=== PATIENT | female | born 1980 | race Caucasian/White ===

== ENCOUNTER 2025-05-22 06:06 | Day surgery (SDC) | payer OTHER, SELFPAY ==
[2025-05-16 11:12] VITALS: BMI 29.3
[2025-05-22] VITALS (10 sets, daily range): BP systolic 120–142; BP diastolic 68–94; PULSE 75–96; RESP 14–18; TEMP 36.9–37.1; O2SAT 95–100
--- OUTSIDE RECORDS SUMMARY | 2025-05-22 06:14 | XMS_ITS | Clinical Summary ---
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 Role Phone Pcp, No Primary Care Provider Unavailabl e Allergies Active Allergy Reactions Criticality Noted Date Comments Amoxicillin 08/24/2020 Medications cetirizine 10 mg capsule Take 10 mg by mouth daily as needed Active mv,calcium,min/ iron/folic/vitK (MULTI FOR HER ORAL) Take by mouth Active cholecalciferol , vitamin D3, 10 mcg (400 unit) capsule Take by mouth daily Active NON FORMULARY Take 1 capsule by mouth daily Protandim Nrf2 Synergizer Active Active Problems No known active problems Encounters Date Type Department Care Team Description 04/18/2025 Telephone [facility] G[facility]enterology [address] [place] [address] Liz Brand NP 03/26/2025 7:30 AM CDT - 03/26/2025 8:27 AM CDT Surgery [address] [phone] Shahbaz Azevedo MD COLONOSCOPY with banding 03/26/2025 7:29 AM CDT Anesthesia Event [address] [phone] Ebony Patel MD 03/26/2025 6:57 AM CDT - 03/26/2025 9:19 AM CDT Hospital Encounter [address] [phone] [id number] Shahbaz Azevedo MD Hemorrhage of anus and rectum; Preop testing Discharge Disposition: Home self care 03/23/2025 Orders Only [facility]enter[facility] [address] [phone] Liz Brand NP Hemorrhage of anus and rectum (Primary Dx) 03/23/2025 Telephone [facility] [address] [place] [address] Shahbaz Azevedo MD Documentation from Last 3 Months Immunizations Immunization Administration Dates Next Due DTaP 04/10/2019 Influenza TIV (IM) 08/25/2021,08/17/2020 Pfizer Covid-19, Mrna, Lnp-s , Pf, 30mcg/0.3ml Dose 07/11/2021,10/22/2020,09/26/2020 Family History Medical History Relation Name Comments Hypertension Brother 1 Colon polyps Father Heart disease Father Hyperlipidemia Father Hypertension Father Cancer Maternal Grandfather lung Cancer Maternal Grandmother lung Colon polyps Mother Hypertension Paternal Grandmother Stroke Paternal Grandmother Relation Name Status Comments Brother 1 Alive Brother 2 Alive Father Alive Maternal Grandfather Maternal Grandmother Mother Alive Paternal Grandfather Paternal Grandmother Sister 1 Alive Sister 2 Alive Sister 3 Alive Social History Tobacco Use Types Packs/Day Years Used Date Smoking Tobacco: Never Smokeless Tobacco: Never Tobacco Cessation:Counseling Given: Not Answered Alcohol Use Standard Drinks/Week Comments Never 0 (1 standard drink = 0.6 oz pur e alcohol) AUDIT-C Answer Date Recorded Frequency of Alcohol Consumption Not on file 05/25/2022 Q2: How many drinks containi ng alcohol do you have on a typical day when you are drinking? Patient does not drink Frequency of Binge Drinking Not on file 05/11 PHQ-2 Answer Date Recorded PHQ-2 Score 0 05/25/2022 Comments No Sex and Gender Information Value Date Recorded Sex Assigned at Not on file Legal Sex Female 12:00 PM CDT Gender Identity Female 08/22/2021 9:17 AM [employer] Sexual Orientation Not on file Last Filed Vital Signs Vital Sign Reading Time Taken Comments Blood Pressure 140/83 03/26/2025 9:08 AM CDT Pulse 67 01/03/2025 11:03 AM CDT Temperature 36.7 C (98.1 F) 03/26/2025 8:33 AM CDT Respiratory Rate 18 03/26/2025 9:08 AM CDT Oxygen Saturation 100% 03/26/2025 9:08 AM CDT Inhaled Oxygen Concentration - - Weight 83.7 kg (184 lb 9.6 oz) 03/26/2025 7:09 A M CDT Height 165.1 cm (5' 5) 03/26/2025 7:09 AM CDT Body Mass Index 30.72 03/26/2025 7:09 AM CDT Plan of Treatment Health Maintenance Due Date Last Done Comments Depression Screening 1992 Hepatitis B Vaccines (1 of 3 - 19+ 3-dose series) 1999 Pap Smear 04/10/2020 04/10/2017 COVID-19 Vaccine ( season) 2024 07/11/2021, 10/22/2020, 09/26/2020 Influenza Vaccine (#1) 2025 , 07/12/2023, 08/25/2021, Additional history exists Mammogram 10/26/2025 10/26/2024, 12/10/2022, 05/27/2022, Additional history exists DTaP,Tdap,and Td Vaccines (2 - Tdap) 04/10/2029 04/10/2019 RSV Vaccines and 60 Years or Older (1 - 1-dose 75+ series) 2055 AMB Pneumococcal 0-49 yrs Aged Out No longer eligible based on patient's age to complete this topic HIB Vaccines Aged Out No longer eligi ble based on patient's age to complete this topic HPV Vaccines Aged Out No longer eligi ble based on patient's age to complete this topic Hepatitis A Vaccines Aged Out No long er eligible based on patient's age to complete this topic IPV Vaccines Aged Out No longer eligi ble based on patient's age to complete this topic MMR Vaccines Discontinued Meningococcal ACWY Vaccine Aged Out N o longer eligible based on patient's age to complete this topic Meningococcal B Vaccine Aged Out No l onger eligible based on patient's age to complete this topic RSV Vaccines <20 Months Aged Out No l onger eligible based on patient's age to complete this topic Varicella Vaccines Discontinued Procedures Procedure Name Priority Date/Time Associated Diagnosis Comments COLONOSCOPY, WITH BIOPSY IF INDICATED 03/26/2025 7:19 AM CDT Hemorrhage of anus and rectum Family history of colonic polyps Special Needs HCG -OJ POC , URINE Routine 03/26/2025 7:12 AM CDT Hemorrhage of anus and rectum Preop testing BI SCREENING BILATERAL Routine 10/26/2024 8:48 AM [employer] Breast cancer screening by mammogram from Last 3 Months or Most Recently Relevant to Health Maintenance Results * POC , urine (03/26/2025 7:12 AM CDT) Test, Urine, POCT Negative Manager Product Marketing Pass Urine 03/26/2025 7:12 AM CDT Ebony Patel MD POINT OF CARE TEST ORDERABLES Final Result * Bilateral digital screening mammogram (10/26/2024 8:48 AM [employer]) Anatomical Region Laterality Modality Breast Bilateral Mammography Narrative 10/26/2024 9:34 AM [employer] EXAMINATION(S) PERFORMED Patient is seen for Bilateral digital screening mammogram. Study was evaluated with a computer aided detection (CAD) system. INDICATIONS Stephani Hermosillo is a 44 y.o. female and is being seen for Breast cancer screening by mammogram. No known family history of breast cancer. COMPARISON TO PREVIOUS EXAMINATION(S) Compared to: 09/10/2023 Bilateral digital screening mammogram, 05/27/2022 Bilateral digital screening mammogram, and 05/26/2021 Bilateral digital screening mammogram FINDINGS There are scattered areas of fibroglandular density. There are benign breast calcifications present. There has been no interval change. Right There is no evidence of suspicious masses, calcifications, or other abnormal findings in the right breast. Left There is no evidence of suspicious masses, calcifications, or other abnormal findings in the left breast. IMPRESSION Right breast assessment: Benign. Left breast assessment: Benign. Routine Screening Mammogram in 1 Yr is recommended for both breasts. Overall BI-RADS category: 2 - Benign Serg Cadena MD IMG BI PROCEDURES Final Result from Last 3 Months or Most Recently Relevant to Health Maintenance Insurance [employer] Advance Directives For more information, please contact: [phone] * Full Code (Latest Code Status on File) Date Activated Date Inactivated Comments 03/26/2025 7:02 AM 03/26/2025 11:20 AM Care Teams Restaurant Greeter Relationship Specialty [place] [address] PCP - General Family Medicine 03/26/25
[2025-05-22] MEDS: LACTATED RINGERS 1,000 ML 30 ML IV CONT ×2 (06:50→11:03)
[2025-05-22] MEDS: TRANEXAMIC ACID 1,000 MG/10 ML AMPUL 1000 MG IV PUSH (07:10)
--- NOTE | 2025-05-22 07:20 | WPDANESEPPF ---
Anes - Initial Pre Proc Eval Procedure: Operation Date: 05/22/25 07:30 Proposed Procedures p Bilateral Breast Augmentation - Shiv Xavier MD s Bilateral Breast Mastopexy with Galaflex - Shiv Xavier MD Date/Time: 05/22/25 07:20 Surgeon: Shiv Xavier MD Pre Op Diagnosis: micromastia, breast ptosis Patient Data Age: 44 Gender: F Height: 1.65 m Weight: 86.1 kg Last Vital Signs Temp 98.8 F 05/22/25 06:25 Pulse 75 05/22/25 06:25 Resp 18 05/22/25 06:25 BP 142/94 H 05/22/25 06:25 Pulse Ox 100 05/22/25 06:25 O2 Del Method Room Air 05/22/25 06:25 Allergies Allergy/AdvReac Type Severity Reaction Status Date / Time amoxicillin Allergy Severe THROAT Verified 05/22/25 06:39 SWELLING Home Medications ?Medication ?Instructions ?Recorded ?Confirmed ?Type multivitamin (Daily Multi-Vitamin 1 tablet PO DAILY 05/16/25 05/22/25 History tablet) Patient hx anesthesia problems: none Family hx anesthesia problems: none Results Review: All pre-operative results and documents have been reviewed as part of the pre-operative evaluation. [facility] Social History Social History Smoking status: Never smoker Second hand tobacco smoke exposure: No Alcohol intake: current Drinks per week: 0 Alcohol use details: RARELY Substance use: never Substance use type: does not use Living arrangements: alone Spiritual care concerns: No Anes - Eval Final PreProcedure Day of Procedure 05/22/25 07:20 Heart: regular rate and rhythm Lungs: clear to auscultation Airway: Mallampati scale class 1 ASA classification: I Anesthetic plan: proceed Anesthesia type and monitoring: general Results Review: All pre-operative results and documents have been reviewed as part of the pre-operative evaluation. Informed Consent: The patient's anesthetic plan and its attendant risks and benefits were discussed with the patient/family/POA. Questions were solicited and answers provided to the satisfaction of the patient/family/POA.
--- NOTE | 2025-05-22 07:31 | WPDHPUPDATE1 ---
History and Physical Update Update Date/Time: 05/22/25 07:31 History and Physical has been reviewed, including an updated exam of the patient. There are NO changes in the patient's condition. Risks, benefits, and alternatives have been discussed and questions answered. Patient agrees to proceed with procedure.
--- NOTE | 2025-05-22 07:31 | W.PM.PROC2 ---
Procedure Note - Detailed Date of Procedure 05/22/25 Pre-op Diagnosis micromastia, breast ptosis Post-op Diagnosis Same Procedure Performed Bilateral augmentation mastopexy with Galaflex Surgeon Shiv Xavier MD Anesthesia General Findings Inverted T Bilateral Brandan Viramontes SoftTouch 490cc Right: REF# [id number] SN [id number] Superior pedicle Left: REF# [id number] SN [id number] Superior medial pedicle Lipoaspirate: 100 cc Description of Procedure She is here today for bilateral breast augmentation mastopexy. Previously and again today the risks, benefits, alternatives were discussed in extensive detail. I wanted her to be very realistic about the risks involved as well as expectations. We discussed aftercare and what to monitor for. Made sure answered all of her questions to her satisfaction today and consent was obtained. Marked in the preoperative holding area with their verification. The patient was taken to the operating room placed supine on the operating table. Anesthesia was provided by anesthesiology. A surgical time-out was taken. She was prepped and draped in a standard sterile fashion. Tumescent was utilized laterally to provide field block Tegaderm nipple Rosa were placed. A 15 blade used to make an incision just superior to the inframammary fold leaving a cusp of de-epithelized tissue at the t junction. Dissection was continued until the chest wall as identified. I elevated a subfascial pocket in the appropriate dimensions based on our preoperative planning for the implant. I then copiously irrigated with saline solution and verified a strict hemostasis. Next the use a triple antibiotic and Betadine containing solution to irrigate the pocket. I washed my gloves with the triple antibiotic and Betadine solution. We washed the implant immediately upon opening it with this solution and only opened it when we needed it. I used implant funnel and no-touch technique. The implant was introduced into the pocket using the funnel. Having verified positioning of the implant this was closed using 2-0 PDS. I tailor tacked the breast into position. Placed her in a sitting position. Verified the nipple-areolar location based on preoperative planning as well as intraoperative observations and measurements in full agreement. Suction lipectomy was completed laterally with a 4mm agnes cannula. This was based on preoperative planning, intraoperative observation, and rolling pinch which was in full agreement. She was placed supine. I de-epithelialized the pedicle. I then removed the inferior central portion of the breast need making sure the implant was well protected. I elevated medial and lateral tissue flaps as well for planned closure. Secured the IMF with 2-0 PDS. Galaflex was soaking on the back table in a betadine solution. Trimmed and sutured into place with 2-0 Vicryl. I closed along the IMF with 2-0 PDS. Along the vertical with 2-0 PDS. I closed around the areola and the vertical incision with 3-0 Monocryl. 3-0 Stratafix along the IMF. I finally closed everything with running subcuticular 4-0 Monocryl and tissue glue. Brijjits placed Fluffs and surgical bra were placed. Estimated Blood Loss 100 Drains No Packing No Pathology None sent Complications No immediate complications Condition Stable Disposition PACU
[2025-05-22] MEDS: LIDOCAINE 1% LOCAL INJ 10 ML VIAL 60 ML INFILTRATE (07:40)
[2025-05-22] MEDS: ceFAZolin SODIUM 2 GM/20 ML SW SYRINGE IV PUSH (07:40)
--- NOTE | 2025-05-22 11:39 | WPDANESPN ---
Anes - Prog Note Post-Op Date/Time: 05/22/25 11:39 Vital Signs: Last Vital Signs Temp 98.4 F 05/22/25 11:03 Pulse 79 05/22/25 11:30 Resp 14 05/22/25 11:30 BP 123/77 05/22/25 11:30 Pulse Ox 100 05/22/25 11:30 O2 Del Method Simple Face Mask 05/22/25 11:30 O2 Flow Rate 6 05/22/25 11:30 Pain Score (VAS): 2 I/O: Intake & Output 05/21/25 05/22/25 05/22/25 23:59 07:59 15:59 Intake Total 500 0 Balance 500 0 Patient Feedback: Patient satisfied with anesthetic care.
[2025-05-22] MEDS: fentaNYL CITRATE INJ (*CRX) 100 MCG/2 ML VIAL 25 MCG IV PUSH ×4 (11:49→13:00)
[2025-05-22] MEDS: oxyCODONE HCL (*CRX) 5 MG TAB IR PO (12:28)
[2025-05-22] MEDS: ONDANSETRON INJ 4 MG/2 ML VIAL IV PUSH (12:31)
== END 2025-05-22 13:46 | disposition home or self-care (01) ==
PROVIDERS: Visit Provider Surgery Plastic and Reconstructive Surgery
PROC: (CPT 19325; principal; 2025-05-22 07:30)
PROC: (CPT 19316; 2025-05-22 07:30)
DX: Z41.1 Encounter for cosmetic surgery (principal); N64.82 Hypoplasia of breast; N64.81 Ptosis of breast
CPT/HCPCS: 19325; 19316; 15777 ×2